=== PATIENT | female | born 1985 | race Caucasian/White ===

== ENCOUNTER 2016-11-24 04:59 | Inpatient (IN) | payer OTHER ==
[2016-11-23 12:37] LABS: APPEARANCE,URINE CLOUDY; BILIRUBIN,URINE NEGATIVE (NEGATIVE); GLUCOSE, URINE NEGATIVE (NEGATIVE); KETONES,URINE NEGATIVE (NEGATIVE); LEUKOCYTE ESTERASE,URINE NEGATIVE (NEGATIVE); NITRITE,URINE NEGATIVE (NEGATIVE); PROTEIN,URINE 30 mg/dL (NEGATIVE); UROBILINOGEN,URINE NEGATIVE mg/dL (<2.0)
[2016-11-23 12:37] LABS: ABSOLUTE LYMPHOCYTES (AUTO) 1.6 10^3/uL (0.5-4.7); ABSOLUTE MONOCYTES (AUTO) 0.4 10^3/uL (0.1-1.4); ABSOLUTE NEUT (AUTO) 6.1 10^3/uL (1.7-8.2); BASOPHILS % (AUTO) 0.2 % (0-2); EOSINOPHILS % (AUTO) 0.4 % (0-6); HEMATOCRIT 36.8 % (36.0-47.0); HGB HCT DIFFERENCE -0.8; LYMPHOCYTES % (AUTO) 19.3 % (13-45); MEAN CORPUSCULAR HEMOGLOBIN 28.8 pg (27.0-33.4); MEAN CORPUSCULAR HGB CONC 32.6 g/dL (32.0-36.0); MEAN CORPUSCULAR VOLUME 88 fl (80-97); MONOCYTES % (AUTO) 4.8 % (3-13); RED BLOOD COUNT 4.16 10^6/uL (3.72-5.28); RED CELL DISTRIBUTION WIDTH 15.5 % (11.5-14.0); SEGMENTED NEUTROPHILS % (AUTO) 75.3 % (42-78); WHITE BLOOD COUNT 8.2 10^3/uL (4.0-10.5)
[2016-11-23 13:23] LABS: URINE BARBITURATES SCREEN NEGATIVE; URINE METHADONE SCREEN NEGATIVE; URINE PHENCYCLIDINE SCREEN NEGATIVE
[2016-11-24] MEDS ORDERED: LACTATED RINGERS 1000 ML IV PRN (05:00)
[2016-11-24] MEDS ORDERED: LIDOCAINE 0.5% INJ-PF (5 MG/ML) 50 ML SDV SUBCUT PRN (05:00)
[2016-11-24] MEDS ORDERED: RINGERS SOLUTION,LACTATED 1,500 ML IV PRN (05:00)
[2016-11-24] MEDS ORDERED: CEFAZOLIN INJ 1 GM VIAL ONE (06:27)
[2016-11-24] MEDS ORDERED: OXYTOCIN 10 UNIT/ML VIAL ONE (07:00)
[2016-11-24] MEDS ORDERED: MIDAZOLAM 2 MG/2 ML INJ ONE (07:01)
[2016-11-24] MEDS ORDERED: METHYLERGONOVINE MALEATE INJ/PF 0.2 MG/1 ML AMPULE ONE (07:01)
[2016-11-24] MEDS ORDERED: OXYTOCIN/NORMAL SALINE 20 UNIT/1,000 ML RTUINJ ONE (07:01)
[2016-11-24] MEDS ORDERED: EPHEDRINE SULFATE INJ 50 MG/1 ML AMPULE ONE (07:01)
[2016-11-24] MEDS ORDERED: ACETAMINOPHEN 100 ML IV ONE (07:01)
[2016-11-24] MEDS ORDERED: FENTANYL CITRATE INJ/PF 100 MCG/2 ML AMPUL ONE (07:46)
[2016-11-24] MEDS: CEFAZOLIN 2 GM/D5W RTU 2 GM/50 ML RTUPB IV PRN ×2 (08:00→11:53)
[2016-11-24] MEDS ORDERED: OXYCODONE-ACETAMINOPHEN 5-325 MG TABLET PO PRN ×3 (08:17→11:54)
[2016-11-24] MEDS ORDERED: FENTANYL CITRATE INJ/PF 100 MCG/2 ML AMPUL IV PRN ×3 (08:17)
[2016-11-24] MEDS ORDERED: ONDANSETRON HCL INJ/PF 4 MG/2 ML SDV IV PRN (08:17)
[2016-11-24] MEDS ORDERED: MEPERIDINE HCL/PF INJ 25 MG/1 ML DISP.SYRIN IV PRN (08:17)
[2016-11-24] MEDS ORDERED: PROMETHAZINE HCL INJ 25 MG/1 ML VIAL IV PRN ×2 (08:17)
[2016-11-24] MEDS ORDERED: MORPHINE SULFATE 10 MG/ML INJ IV PRN (08:17)
[2016-11-24] MEDS ORDERED: DIPHENHYDRAMINE HCL 50 MG/ML VIAL IV PRN (08:17)
--- NOTE | 2016-11-24 09:48 | OPERATIVE REPORT E ---
Operative Report NAME: HAI HARRIS : 1985 AGE: 31Y DATE OF SURGERY: 11/24/2016 ROOM: 224 PREOPERATIVE DIAGNOSES: 1. Intrauterine at 39 weeks. 2. Gestational diabetes, class A1. 3. History of with desire for repeat. 4. Morbid obesity. POSTOPERATIVE DIAGNOSES: 1. Intrauterine at 39 weeks. 2. Gestational diabetes, class A1. 3. History of with desire for repeat. 4. Morbid obesity. OPERATION PERFORMED: Primary low transverse cervical section. SURGEON: ZEYAD MELVIN M.D. EVENTS ASSISTANT: Chapo Saba D.O. ESTIMATED BLOOD LOSS: 500 mL. ANESTHESIA: Spinal. SPECIMEN TO PATHOLOGY: Placenta. FINDINGS: Burton female infant. Vertex presentation. Clear amniotic fluid. Apgars 8 at one, 9 at five minutes. Weight was 8 pounds 8 ounces. Normal uterus, tubes, and ovaries. DESCRIPTION OF PROCEDURE: After discussing risks, benefits, and alternatives of the procedure and obtaining informed consent, the patient was taken to the operating room where spinal anesthesia was achieved. A Priest catheter was placed and she was prepped and draped in the usual standard fashion. A Pfannenstiel skin incision was made. Abdomen was entered in layers in the usual standard fashion. A low transverse cervical incision was made. Surgeon's hand was entered into the abdomen. Due to the thickness of the abdominal wall, initial difficulty was noted in elevating the head out of the pelvis and through the maternal abdominal wall. The peritoneum was released where a tight band was noted. The surgeon's hand was replaced along with a Kiwi vacuum, and the Kiwi was applied to the vertex. Pressure at 550 was utilized to elevate the vertex out of the pelvis and a pop-off was noted. The Kiwi was replaced and again traction was applied. There was one more pop-off but the head was then in the abdominal wall. The head was delivered at that point simply with fundal pressure. The shoulders and body delivered easily thereafter. Nasopharynx and oropharynx were bulb suctioned. Cord was clamped x2 and cut. Dr Saba arrived to assist at that point. was handed to pediatrics who were present. Placenta was manually extracted. Uterus was exteriorized and cleared of all clots and debris. Hysterotomy incision was closed in a two-layer fashion and excellent hemostasis was observed. The peritoneal cavity was irrigated and hemostasis again assured. The peritoneum was closed with 2-0 Vicryl in a pursestring fashion. The subcutaneous tissues and subfascial tissues were inspected and hemostasis achieved with cautery. The fascia was closed with 0-Vicryl. The subcutaneous tissues were closed in two layers with 3-0 plain cut. The skin was closed in a subcuticular fashion with 3-0 Monocryl. An OpSite dressing was applied. The patient was taken to recovery in stable condition. All sponge, needle, lap, and instrument counts were correct x2. DICTATING PHYSICIAN: ZEYAD MELVIN M.D. [id number] PHY#: [id number] ID: [id number] JOB#: [id number] ACCT: [id number] cc:ZEYAD MELVIN M.D. > MTDD
[2016-11-24] MEDS ORDERED: DIPH/PERTUSS(ACELL)/TETANUS VAC/PF 0.5 ML SYR (>=10YO) IM PRN (11:54)
[2016-11-24] MEDS ORDERED: PROMETHAZINE HCL INJ 25 MG/1 ML VIAL IM PRN (11:54)
[2016-11-24] MEDS ORDERED: MEASLES,MUMPS&RUBELLA VACC/PF 0.5 ML VIAL SUBCUT PRN (11:54)
[2016-11-24] MEDS ORDERED: SIMETHICONE 80 MG TAB.CHEW PO PRN (11:54)
[2016-11-24] MEDS ORDERED: OXYTOCIN/NORMAL SALINE 20 UNIT/1,000 ML RTUINJ INJ PRN (11:54)
[2016-11-24] MEDS ORDERED: ACETAMINOPHEN 325 MG TABLET PO PRN (11:54)
[2016-11-24] MEDS ORDERED: RINGERS SOLUTION,LACTATED 2,000 ML IV PRN (11:56)
[2016-11-24] MEDS: HYDROMORPHONE HCL INJ/PF 2 MG/ML AMPULE IV PRN ×2 (11:57→17:01)
[2016-11-24] MEDS ORDERED: HYDROMORPHONE HCL INJ/PF 2 MG/ML AMPULE ONE (11:57)
--- NOTE | 2016-11-24 12:00 | L&D Flow Sheet ---
LD Flowsheet Datetime Report Generated by CPN: 11/24/2016 12:00 Datetime: 11/24/2016 11:04 Pulse: 86 (QS system process) Respirations: 20 (Jacey Bellavance, RNC) SpO2 (%): 96 (QS system process) Temperature Route: Oral (Jacey Bellavance, RNC) Pain Scale: 3 (Jacey Bellavance, RNC) Pain Presence: Constant (Jacey Bellavance, RNC) Pain Type: Cramping (Jacey Bellavance, RNC) Pain Location: Abdomen (Jacey Bellavance, RNC) Pain Goal: 1 (Jacey Bellavance, RNC) Pain Relief Measures: Comfort Measures (Jacey Bellavance, RNC) Pain Assessment Comments: transfered to for continued care and will medicate at that time (Jacey Bellavance, RNC) Datetime: 11/24/2016 10:59 Pulse: 78 (QS system process) SpO2 (%): 96 (QS system process) Pain Scale: 0 (Jacey Bellavance, RNC) Datetime: 11/24/2016 10:54 Pulse: 87 (QS system process) SpO2 (%): 96 (QS system process) Datetime: 11/24/2016 10:50 NBP Sys/Lexie/Mean (mmHg): 119 (QS system process) : 67 (QS system process) : 86 (QS system process) Pulse: 78 (QS system process) Datetime: 11/24/2016 10:49 Pulse: 83 (QS system process) SpO2 (%): 95 (QS system process) Datetime: 11/24/2016 10:44 Pulse: 80 (QS system process) SpO2 (%): 97 (QS system process) Pain Scale: 0 (Jacey Bellavance, RNC) Datetime: 11/24/2016 10:43 Respirations: o2 off (Jacey Bellavance, RNC) Datetime: 11/24/2016 10:39 Pulse: 71 (QS system process) SpO2 (%): 96 (QS system process) Datetime: 11/24/2016 10:34 NBP Sys/Lexie/Mean (mmHg): 120 (QS system process) : 61 (QS system process) : 83 (QS system process) Pulse: 64 (QS system process) Pulse: 71 (QS system process) Respirations: 20 (Jacey Bellavance, RNC) SpO2 (%): 97 (QS system process) Pain Scale: 0 (Jacey Bellavance, RNC) Datetime: 11/24/2016 10:29 NBP Sys/Lexie/Mean (mmHg): 120 (QS system process) : 60 (QS system process) : 83 (QS system process) Pulse: 68 (QS system process) Respirations: 18 (Jacey Bellavance, RNC) Pain Scale: 0 (Jacey Bellavance, RNC) Datetime: 11/24/2016 10:28 Pulse: 64 (QS system process) SpO2 (%): 98 (QS system process) Datetime: 11/24/2016 10:24 NBP Sys/Lexie/Mean (mmHg): 120 (QS system process) : 60 (QS system process) : 82 (QS system process) Pulse: 67 (QS system process) Datetime: 11/24/2016 10:23 Pulse: 71 (QS system process) SpO2 (%): 93 (QS system process) Datetime: 11/24/2016 10:19 NBP Sys/Lexie/Mean (mmHg): 123 (QS system process) : 66 (QS system process) : 86 (QS system process) Pulse: 64 (QS system process) Datetime: 11/24/2016 10:18 Pulse: 87 (QS system process) SpO2 (%): 95 (QS system process) Datetime: 11/24/2016 10:14 NBP Sys/Lexie/Mean (mmHg): 119 (QS system process) : 69 (QS system process) : 89 (QS system process) Pulse: 72 (QS system process) Respirations: 20 (Jacey Bellavance, RNC) Pain Scale: 0 (Jacey Bellavance, RNC) Datetime: 11/24/2016 10:13 Pulse: 65 (QS system process) SpO2 (%): 97 (QS system process) Datetime: 11/24/2016 10:09 NBP Sys/Lexie/Mean (mmHg): 113 (QS system process) : 64 (QS system process) : 83 (QS system process) Pulse: 64 (QS system process) Datetime: 11/24/2016 10:08 Pulse: 71 (QS system process) SpO2 (%): 98 (QS system process) Datetime: 11/24/2016 10:04 NBP Sys/Lexie/Mean (mmHg): 117 (QS system process) : 60 (QS system process) : 82 (QS system process) Pulse: 71 (QS system process) Datetime: 11/24/2016 10:03 Pulse: 66 (QS system process) SpO2 (%): 98 (QS system process) Datetime: 11/24/2016 09:59 NBP Sys/Lexie/Mean (mmHg): 119 (QS system process) : 60 (QS system process) : 82 (QS system process) Pulse: 70 (QS system process) Respirations: 20 (Jacey Bellavance, RNC) Pain Scale: 0 (Jacey Bellavance, RNC) Datetime: 11/24/2016 09:58 Pulse: 70 (QS system process) SpO2 (%): 97 (QS system process) Datetime: 11/24/2016 09:55 NBP Sys/Lexie/Mean (mmHg): 122 (QS system process) : 55 (QS system process) : 77 (QS system process) Pulse: 73 (QS system process) Datetime: 11/24/2016 09:53 Pulse: 74 (QS system process) SpO2 (%): 98 (QS system process) Datetime: 11/24/2016 09:48 Pulse: 75 (QS system process) SpO2 (%): 97 (QS system process) Datetime: 11/24/2016 09:45 NBP Sys/Lexie/Mean (mmHg): 136 (QS system process) : 71 (QS system process) : 98 (QS system process) Pulse: 75 (QS system process) Respirations: 20 (Jacey Bellavance, RNC) Pain Scale: 0 (Jacey Bellavance, RNC) Datetime: 11/24/2016 09:43 Pulse: 91 (QS system process) SpO2 (%): 94 (QS system process) Datetime: 11/24/2016 09:39 NBP Sys/Lexie/Mean (mmHg): 138 (QS system process) : 72 (QS system process) : 98 (QS system process) Pulse: 63 (QS system process) Datetime: 11/24/2016 09:38 Pulse: 68 (QS system process) SpO2 (%): 96 (QS system process) Datetime: 11/24/2016 09:34 NBP Sys/Lexie/Mean (mmHg): 135 (QS system process) : 68 (QS system process) : 95 (QS system process) Pulse: 63 (QS system process) Respirations: 18 (Jacey Bellavance, RNC) Datetime: 11/24/2016 09:33 Pulse: 71 (QS system process) SpO2 (%): 93 (QS system process) Datetime: 11/24/2016 09:30 Respirations: 20 (Jacey Bellavance, RNC) Pain Scale: 0 (Jacey Bellavance, RNC) Datetime: 11/24/2016 09:29 NBP Sys/Lexie/Mean (mmHg): 132 (QS system process) : 71 (QS system process) : 94 (QS system process) Pulse: 69 (QS system process) Datetime: 11/24/2016 09:28 Pulse: 71 (QS system process) SpO2 (%): 89 (QS system process) Datetime: 11/24/2016 09:24 Stage of : Recovery (Jacey Bellavance, RNC) NBP Sys/Lexie/Mean (mmHg): 137 (QS system process) : 73 (QS system process) : 99 (QS system process) Pulse: 80 (QS system process) Respirations: 20 (Jacey Bellavance, RNC) Temperature (F): 98.1 (Jacey Bellavance, RNC) Temperature (C): 36.7 (QS system process) Temperature Route: Oral (Jacey Bellavance, RNC) Pain Scale: 0 (Jacey Bellavance, RNC) Datetime: 11/24/2016 09:23 Pulse: 76 (QS system process) Pulse: 74 (QS system process) SpO2 (%): 92 (QS system process) SpO2 (%): 93 (QS system process) LaborFlag: Antepartum (QS system process) Datetime: 11/24/2016 05:43 Bedside Blood Glucose: 87 (QS system process) LaborFlag: Antepartum (QS system process)
[2016-11-24] MEDS: IBUPROFEN 800 MG TABLET PO SCH ×3 (13:44→23:28)
[2016-11-24] MEDS ORDERED: ONDANSETRON HCL INJ/PF 4 MG/2 ML SDV ONE (14:22)
[2016-11-24] MEDS ORDERED: PHENYLEPHRINE HCL INJ/PF 10 MG/1 ML SDV ONE (14:22)
[2016-11-24] MEDS: CEFAZOLIN 2 GM/D5W RTU 2 GM/50 ML RTUPB IV SCH ×2 (14:25→21:47)
[2016-11-24] MEDS: OXYCODONE-ACETAMINOPHEN 5-325 MG TABLET PO PRN ×2 (14:32→20:18)
[2016-11-24] MEDS: DOCUSATE SODIUM 100 MG CAPSULE PO SCH (18:07)
[2016-11-25] MEDS: OXYCODONE-ACETAMINOPHEN 5-325 MG TABLET PO PRN ×5 (01:55→20:00)
[2016-11-25] MEDS: IBUPROFEN 800 MG TABLET PO SCH ×4 (05:02→23:52)
[2016-11-25] MEDS ORDERED: CETIRIZINE 10 MG TABLET PO SCH (06:00)
[2016-11-25] MEDS ORDERED: (PENDING PHARMACY ID) (Pantoprazole Sodium [Protonix] 1 TAB) PO SCH (06:00)
--- NOTE | 2016-11-25 06:13 | L&D General Admission ---
General Admit Datetime Report Generated by CPN: 11/25/2016 06:00 INFORMATION Patient Age: 31 (09/18/2016 14:50:QS system process) EDC: 12/01/2016 00:00 (10/20/2016 12:54:KATERIN Carvajal) : 3 (10/20/2016 12:54:KATERIN Carvajal) Para: 1 (10/20/2016 12:54:KATERIN Carvajal) Term: 1 (10/20/2016 12:54:KATERIN Carvajal) : 0 (10/20/2016 12:54:KATERIN Carvajal) Spontaneous Abortions: 0 (10/20/2016 12:54:KATERIN Carvajal) Induced Abortions: 1 (10/20/2016 12:54:KATERIN Carvajal) Livin (10/20/2016 12:54:KATERIN Carvajal) Cesareans: 1 (10/20/2016 12:54:KATERIN Carvajal) VBACs: 0 (10/20/2016 12:54:KATERIN Carvajal) Ectopic: 0 (10/20/2016 12:54:[facility]) Multiple Births: 0 (10/20/2016 12:54:[facility]) Baby, Number in Womb: 2 (10/20/2016 [facility]) CARE Primary Turf Keeper[facility] (10/20/2016 12:54:[facility]is Kincaid [facility]) Month of 1st Visit: April (10/20/2016 12:[facility]) Adequate Care: Yes (10/20/2016 12:[facility]) Height (in): 63 (11/24/2016 08:06:QS system process) ALLERGIES Medication Allergy: Yes (10/20/2016 12:54:[facility] Newell [facility]) Medication Allergies: erythromycin base/SV/Anaphylaxis (11/18/2016) (11/24/2016 04:59:QS system process) Latex Allergy: No Latex Allergies (10/20/2016 12:54:[facility] Newell [facility]) Food Allergies: denies (10/20/2016 12:54:Sandra Virk RN) COMMUNICATION Primary Language: Japanese (10/20/2016 12:54:[facility] Newell [facility]) Medical Tx Preferred Language: Japanese (10/20/2016 12:54:[facility] Kincaid [facility]) Communication Barrier(s): None (10/20/2016 12:54[facility]) DEMOGRAPHICS Address: [address] [place] [id number] (09/18/2016 14:50:QS system process) Zipcode: [address] (09/18/2016 14:50:QS system process) Home (09/18/2016 14:50:QS system process) Work (09/18/2016 14:50:QS system process) SSN: [id number] (09/18/2016 14:50:QS system process) Next of Kin Name: LEYDI KIMBERLY (09/18/2016 14:50:QS system process) Next of Kin (09/18/2016 14:50:QS system process) Next of Kin Relationship: SPO (09/18/2016 14:50:QS system process) Date of : 1985 (09/18/2016 14:50:QS system process) Marital Status: (09/18/2016 14:50:QS system process) Sex: Female (09/18/2016 14:50:QS system process) Race: (09/18/2016 14:50:QS system process) Ethnicity: Non- or (09/18/2016 14:50:QS system process) Congregation: [employer] (09/18/2016 14:50:QS system process) DRUG AND ALCOHOL USE Alcohol: No (10/20/2016 12:54:Doris Camp, RN) Cigarettes: Former Smoker. [id number] (10/20/2016 12:54:Doris Camp, RN) Marijuana: No (10/20/2016 12:54:Doris Camp, RN) Cocaine: No (10/20/2016 12:54:Doris Camp, RN) Other Illicit Drugs: No (10/20/2016 12:54:Doris Camp, RNC) Linemarker: [employer] (10/20/2016 12:54:KATERIN Carvajal) Feeding Preference: Breast (10/20/2016 12:54:KATERIN Carvajal) Benefit of Breast Feed Discussed: Yes (10/20/2016 12:54:Fouzia García RN) Pain Management Plans: Spinal (10/20/2016 12:54:KATERIN Carvajal) Plans for Labor and Delivery: None (10/20/2016 12:54:KATERIN Carvajal) LABS Hemoglobin: 12.0 (11/23/2016 11:34:QS system process) Hematocrit: 36.8 (11/23/2016 11:34:QS system process) MCV: 88 (11/23/2016 11:34:QS system process)
[2016-11-25 09:03] LABS: HEMATOCRIT 34.8 % (36.0-47.0); HEMOGLOBIN 11.3 g/dL (12.0-15.5); HGB HCT DIFFERENCE -0.9; MEAN CORPUSCULAR HEMOGLOBIN 28.7 pg (27.0-33.4); MEAN CORPUSCULAR HGB CONC 32.6 g/dL (32.0-36.0); MEAN CORPUSCULAR VOLUME 88 fl (80-97); RED BLOOD COUNT 3.96 10^6/uL (3.72-5.28); WHITE BLOOD COUNT 8.6 10^3/uL (4.0-10.5)
[2016-11-25] MEDS: DOCUSATE SODIUM 100 MG CAPSULE PO SCH ×2 (09:47→17:24)
[2016-11-25] MEDS: FAMOTIDINE 20 MG TABLET PO SCH ×2 (09:47→21:08)
[2016-11-25] MEDS: PRENATAL VITAMIN W-O CA NO5/FE FUMARATE/FA CAPSULE PO SCH (09:47)
[2016-11-25] MEDS ORDERED: (PENDING PHARMACY ID) (Ranitidine Hcl [Zantac 150 Mg Tablet] 150 MG) PO SCH (10:00)
--- NOTE | 2016-11-25 13:21 | PDOC PROGRESS REPORT ---
Subjective-OB Subjective: Post Delivery Day:1 31 year old s/p repeat . , ambulating and voiding without difficulty. Denies any needs at this time. Physical Exam (OB) Vital Signs: Temp Pulse Resp BP Pulse Ox 97.8 F 90 16 109/57 L 98 11/25/16 08:42 11/25/16 08:42 11/25/16 08:42 11/25/16 08:42 11/25/16 08:42 Intake & Output 11/24/16 11/25/16 11/26/16 06:59 06:59 06:59 Intake Total 3450 Output Total 2800 Balance 650 - General General Appearance: Appears well In distress: None - Dressing Removed: No - op site Incision: Dressing - Lochia Lochia Amount: Small 10-25 ml Lochia Color: Rubra/Red - Abdomen Description: Soft, Round Hernia Present: No Fundal Description: Firm, Midline Fundal Height: u/u - u/2 - Respiratory Respiratory Status: No respiratory distress - Extremities Upper extremity: Normal inspection Lower extremities: Normal inspection - Neurological Orientation: AAOx4 - Psychological Associated symptoms: Normal affect, Normal mood Objective-Diagnostic Laboratory: 11/25/16 08:28 11/25/16 08:28 WBC 8.6 RBC 3.96 Hgb 11.3 L Hct 34.8 L MCV 88 MCH 28.7 MCHC 32.6 RDW 16.0 H Plt Count 183 Assessment and Plan(PN) - Assessment and Plan (1) Status post repeat low transverse section Is this a current diagnosis for this admission?: YesPlan: continue stay - Time Spent with Patient Time with patient: 15-25 minutes Medications reviewed and adjusted accordingly: Yes - Disposition Anticipated Discharge: Home Within: within 24 hours
[2016-11-26] MEDS: OXYCODONE-ACETAMINOPHEN 5-325 MG TABLET PO PRN ×2 (03:24→07:48)
[2016-11-26] MEDS: IBUPROFEN 800 MG TABLET PO SCH (05:21)
[2016-11-26 08:10] VITALS: BP 107/58
[2016-11-26] MEDS ORDERED: LANSOPRAZOLE 30 MG TAB.RAP.DR PO SCH (10:00)
[2016-11-26] MEDS: PRENATAL VITAMIN W-O CA NO5/FE FUMARATE/FA CAPSULE PO SCH (10:06)
[2016-11-26] MEDS: DOCUSATE SODIUM 100 MG CAPSULE PO SCH (10:06)
[2016-11-26] MEDS: FAMOTIDINE 20 MG TABLET PO SCH (10:06)
--- NOTE | 2016-11-26 11:38 | PDOC DISCHARGE SUMMARY ---
Final Diagnosis Discharge Date: 11/26/16 - Final Diagnosis (1) Status post repeat low transverse section Is this a current diagnosis for this admission?: Yes Discharge Data - Discharge Medication Home Medications: Aspirin [Aspirin 81 mg Chewable Tablet] 1 tab PO DAILY 10/20/16 Cetirizine HCl [Zyrtec] 1 tab PO .CLARIFY DOSE DAILY 10/20/16 Pantoprazole Sodium [Protonix] 1 tab PO .CLARIFY DOSE DAILY 10/20/16 Pnv No.122/Iron/Folic Acid [ Multi Tablet] 1 tab PO DAILY 10/20/16 Ranitidine HCl [Zantac 150 mg Tablet] 1 tab PO .CLARIFY DOSE BID 10/20/16 Reason(s) for Admission: Ceasarean Section-Repeat Procedures: None Intrapartum Procedure(s): : Low Cervical, Transverse - Diagnosis Test Laboratory: Temp Pulse Resp BP Pulse Ox 97.7 F 83 18 107/58 L 97 11/26/16 08:02 11/26/16 08:02 11/26/16 08:02 11/26/16 07:33 11/26/16 08:02 11/23/16 11/23/16 11/25/16 11:27 11:34 08:28 RBC 4.16 3.96 Hgb 12.0 11.3 L Hct 36.8 34.8 L Urine Opiates Screen NEGATIVE - Discharge information/Instructions Discharge Activity: Activity As Tolerated, No Driving, No Lifting Over 10 Pounds , No Lifting/Push/Pulling, Pelvic Rest, No tub bath Discharge Diet: Regular Disposition: HOME, SELF-CARE Follow up with: [facility] in: 5, Days
== END 2016-11-26 12:17 | disposition home or self-care (01) | DRG 765 ==
LOC: 2S 04:59
PROVIDERS: ADMIT Specialist; ATTEND Specialist
PROC: 10D00Z1 Extraction of Products of Conception, Low, Open Approach (ICD-10-PCS; principal; 2016-11-24 07:45)
DX: O34.211 Maternal care for low transverse scar from previous cesarean delivery (principal); Z68.43 Body mass index [BMI] 50.0-59.9, adult; O24.429 Gestational diabetes mellitus in childbirth, unspecified control; N85.8 Other specified noninflammatory disorders of uterus; O75.89 Other specified complications of labor and delivery; E28.2 Polycystic ovarian syndrome; O99.214 Obesity complicating childbirth; E66.01 Morbid (severe) obesity due to excess calories; Z3A.39 39 weeks gestation of pregnancy; Z37.0 Single live birth
CPT/HCPCS: 1961; 36415; 59025; 80307; 81001; 82962; 85025; 85027; 86850; 86900; 86901; 94799; J0131; J0690; J1170; J2210; J2250; J2370; J2405; J2590; J3010; J3490

== ENCOUNTER → 2017-11-15 | Outpatient (CLI) | payer OTHER ==
[2017-11-15 17:08] LABS: ABSOLUTE BASOPHILS # (AUTO) 0.1 10^3/uL (0.0-0.2); ABSOLUTE EOSINOPHILS # (AUTO) 0.2 10^3/uL (0.0-0.6); ABSOLUTE LYMPHOCYTES (AUTO) 3.6 10^3/uL (0.5-4.7); ABSOLUTE MONOCYTES (AUTO) 0.5 10^3/uL (0.1-1.4); ABSOLUTE NEUT (AUTO) 8.3 10^3/uL (1.7-8.2); BASOPHILS % (AUTO) 0.8 % (0-2); EOSINOPHILS % (AUTO) 1.3 % (0-6); HEMATOCRIT 37.2 % (36.0-47.0); HEMOGLOBIN 12.4 g/dL (12.0-15.5); LYMPHOCYTES % (AUTO) 28.4 % (13-45); MEAN CORPUSCULAR HGB CONC 33.3 g/dL (32.0-36.0); MEAN CORPUSCULAR VOLUME 84 fl (80-97); MONOCYTES % (AUTO) 4.1 % (3-13); PLATELET COUNT 336 10^3/uL (150-450); RED BLOOD COUNT 4.43 10^6/uL (3.72-5.28); SEGMENTED NEUTROPHILS % (AUTO) 65.4 % (42-78); TOTAL CELLS COUNTED % (AUTO) 100 %; WHITE BLOOD COUNT 12.7 10^3/uL (4.0-10.5)
[2017-11-15 17:24] LABS: ALANINE AMINOTRANSFERASE 36 U/L (9-52); ALKALINE PHOSPHATASE 83 U/L (38-126); ANION GAP 11 (5-19); ASPARTATE AMINO TRANSFERASE 15 U/L (14-36); BILIRUBIN,DIRECT 0.4 mg/dL (0.0-0.4); BILIRUBIN,TOTAL 0.5 mg/dL (0.2-1.3); BLOOD UREA NITROGEN 17 mg/dL (7-20); CALCIUM 10.2 mg/dL (8.4-10.2); CARBON DIOXIDE 30 mmol/L (22-30); CHLORIDE 100 mmol/L (98-107); GLUCOSE 86 mg/dL (75-110); POTASSIUM 4.3 mmol/L (3.6-5.0); TOTAL PROTEIN 6.7 g/dL (6.3-8.2)
--- NOTE | 2017-11-15 17:31 | RADIOLOGY REPORT (SQ) ---
EXAM DESCRIPTION: CHEST PA/LAT COMPLETED DATE/TIME: 11/15/2017 5:17 pm REASON FOR STUDY: Morbid (severe) obesity due to excess calories,Gastro-esophageal reflux dis COMPARISON: 06/07/2016 EXAM PARAMETERS: NUMBER OF VIEWS: two views TECHNIQUE: Digital Frontal and Lateral radiographic views of the chest acquired. RADIATION DOSE: NA LIMITATIONS: none FINDINGS: LUNGS AND PLEURA: No opacities, masses or pneumothorax. No pleural effusion. MEDIASTINUM AND HILAR STRUCTURES: No masses or contour abnormalities. HEART AND VASCULAR STRUCTURES: Heart normal size. No evidence for failure. BONES: No acute findings. HARDWARE: None in the chest. OTHER: No other significant finding. IMPRESSION: NO SIGNIFICANT RADIOGRAPHIC FINDING IN THE CHEST. TECHNICAL DOCUMENTATION: JOB ID: [id number] [employer]- All Rights Reserved
--- NOTE | 2017-11-16 09:48 | EKG REPORT ---
SEVERITY:- NORMAL ECG - SINUS RHYTHM : Confirmed by: Rajesh Beckford 16-Nov-2017 09:47:39
== END ==
LOC: LAB 16:38
PROVIDERS: ATTEND Surgery
DX: Z01.810 Encounter for preprocedural cardiovascular examination (principal); Z01.811 Encounter for preprocedural respiratory examination; Z01.818 Encounter for other preprocedural examination; Z01.812 Encounter for preprocedural laboratory examination; E66.01 Morbid (severe) obesity due to excess calories; G47.30 Sleep apnea, unspecified; K21.9 Gastro-esophageal reflux disease without esophagitis; E03.9 Hypothyroidism, unspecified
CPT/HCPCS: 36415; 71046; 80053; 84443; 85025; 93005; 93010